=== PATIENT | male | born 1955 | race Caucasian/White ===

== ENCOUNTER 2024-01-18 06:11 | Day surgery (SDC) | payer OTHER ==
[~2024-01-18] VITALS: Ht 172.7 cm; Wt 90.9 kg
[2024-01-18] MEDS ORDERED: SODIUM CHLORIDE 0.9% 1,000 ML ONE (06:46)
[2024-01-18] MEDS ORDERED: MIDAZOLAM HCL 2 MG/2 ML VIAL ONE (07:20)
[2024-01-18] MEDS ORDERED: FentaNYL CITRATE PF 100 MCG/2 ML VIAL ONE (07:20)
[2024-01-18] MEDS: SODIUM CHLORIDE 0.9% 1,000 ML IV ONE (07:36)
[2024-01-18 07:50] LABS: GLUCOMETER DEV NAME(LOC) SDS.; GLUCOSE,POINT OF CARE 280 MG/DL (70-110)
[2024-01-18] MEDS: FentaNYL CITRATE PF 100 MCG/2 ML VIAL IVP ONE (09:06)
[2024-01-18] MEDS: MIDAZOLAM HCL 2 MG/2 ML VIAL IVP ONE (09:06)
[2024-01-18 09:13] VITALS: PULSE 94; RESP 16; O2SAT 100
[2024-01-18] MEDS ORDERED: MethylPREDNISolone SOD SUCC 125 MG/2 ML VIAL ONE (10:05)
[2024-01-18] MEDS: MethylPREDNISolone SOD SUCC 125 MG/2 ML VIAL IVP ONE (10:21)
== END 2024-01-18 11:45 | disposition home or self-care (01) ==
LOC: SURGERY 06:11
PROVIDERS: ATTEND Internal Medicine Critical Care Medicine
DX: R05.3 Chronic cough (principal); R49.0 Dysphonia; R04.2 Hemoptysis; R91.8 Other nonspecific abnormal finding of lung field; J38.4 Edema of larynx; B37.0 Candidal stomatitis; E11.9 Type 2 diabetes mellitus without complications; J45.909 Unspecified asthma, uncomplicated; G47.33 Obstructive sleep apnea (adult) (pediatric); F17.210 Nicotine dependence, cigarettes, uncomplicated; Z79.4 Long term (current) use of insulin; Z79.82 Long term (current) use of aspirin; Z79.84 Long term (current) use of oral hypoglycemic drugs; Z79.899 Other long term (current) drug therapy; Z98.818 Other dental procedure status; Z98.890 Other specified postprocedural states
CPT/HCPCS: 31623; 82962; 87206; 87101; 87220; 87070; 88108; 31624; 94640; 71045; 87015; J3010; J2250; J2919; J7030